=== PATIENT | female | born 2000 | race Caucasian/White ===

== ENCOUNTER → 2021-01-23 | Outpatient (CLI) | payer OTHER | LOC: COL.RAD 14:00 | DX: Z87.81 Personal history of (healed) traumatic fracture (principal); S22.31XA Fracture of one rib, right side, initial encounter for closed fracture ==

== ENCOUNTER → 2021-06-06 | Outpatient (CLI) | payer OTHER | LOC: COL.RAD 07:45 | DX: Z87.81 Personal history of (healed) traumatic fracture (principal) ==

== ENCOUNTER → 2022-06-11 | Outpatient (CLI) | payer OTHER | LOC: COL.RAD 10:26 | DX: R07.89 Other chest pain (principal) ==